=== PATIENT | male | born 1950 | race Hispanic/Latino ===

== ENCOUNTER 2017-02-14 06:35 | Day surgery (SDC) | payer MEDICARE ==
[2017-02-14 07:32] LABS: Hematocrit 40.5 % (35.5-45.6); Hemoglobin 13.9 gm/dl (11.8-15.2); Mean Corpuscular HGB Conc 34 % (32-34); Mean Corpuscular Hemoglobin 32 pg (28-32); Mean Corpuscular Volume 93 fl (84-94); Platelet Count 232 K/mm3 (140-440); Red Blood Count 4.35 M/mm3 (3.65-5.03); Red Cell Distribution Width 13.3 % (13.2-15.2); White Blood Count 8.9 K/mm3 (4.5-11.0)
[2017-02-14 07:42] LABS: INR 1.01 (0.87-1.13)
[2017-02-14 07:45] LABS: Anion Gap 17 mmol/L; BUN/Creatinine Ratio 23.33; Blood Urea Nitrogen 14 mg/dL (9-20); Calcium 9.1 mg/dL (8.4-10.2); Carbon Dioxide 25 mmol/L (22-30); Chloride 100.8 mmol/L (98-107); Glucose 108 mg/dL (75-100); Potassium 4.8 mmol/L (3.6-5.0); Sodium 138 mmol/L (137-145)
[2017-02-14] MEDS ORDERED: NACL 0.9% 500 ML 500 ML IV SCH (08:00)
[2017-02-14 08:41] LABS: Basophils % (Manual) 0 % (0.0-1.8); Blastocytes % (Manual) 0 %
[2017-02-14 08:42] LABS: Diff Status Complete; Ovalocytes Rare; Platelet Estimate Consistent w Auto; Poikilocytosis 1+; Tear Drop Cells Rare
[2017-02-14] MEDS ORDERED: BABY ASPIRIN PO SCH (10:00)
[2017-02-14] MEDS ORDERED: CALAN ONE (10:10)
[2017-02-14] MEDS ORDERED: HEPARIN 10,000 UNITS/10 ML ONE (10:10)
[2017-02-14] MEDS ORDERED: HEPARIN/NS 5000 UNIT/500ML(CATH LAB) 1,000 ML IR ONE (10:10)
[2017-02-14] MEDS ORDERED: XYLOCAINE 2% INFILTRATI ONE (10:10)
[2017-02-14] MEDS ORDERED: NITROGLYCERIN SYRINGE 3 ML ONE (10:11)
[2017-02-14] MEDS ORDERED: VERSED ONE (10:11)
[2017-02-14] MEDS ORDERED: SUBLIMAZE ONE (10:12)
--- NOTE | 2017-02-14 11:59 | Cardiac Catherization Report ---
LEFT HEART CATHETERIZATION CLINICAL INFORMATION: This is a patient of Dr. Jamel Cabrera. This is a 66-year-old male with a history of hypertension and hyperlipidemia. He is on beta soo and nitrate therapy. He gets some shortness of breath with exertion. Abnormal stress test in the inferolateral regions and is here for left heart catheterization. PROCEDURE IN DETAIL. Left heart cath performed via the right radial artery, sterile technique, local anesthesia, 6-Burmese radial sheath inserted. PROCEDURE FINDINGS: Left system engaged with JL3.5 catheter. Left main is a large caliber vessel, patent and bifurcates into a medium caliber LAD, proximal is a diffuse long 90% lesion up to the bifurcation of a [id number] caliber diagonal 1 and the rest of the LAD is a medium caliber vessel, patent with mild luminal irregularities. Circumflex has [id number] tortuosity proximally, mid long diffuse disease going to OM1 and OM2, which are both medium caliber vessel, patent with moderate tortuosity, patent with mild luminal irregularities. RCA is a dominant vessel, proximal 50%, mid has a 95% lesion. The medium caliber vessel is patent. Small PDA that is patent. PLV is small patent. LV gram done in LEI and DOSHI view shows normal LV function and LVEDP of 60 mmHg. LV was 125 and aortic was 119/59. No significant gradient across the aortic valve on pullback. 5-Burmese catheters were taken over a guidewire. A 6-Burmese radial sheath was discontinued. Radial dressing applied. No hematoma. No bleeding. SUMMARY: The patient has significant triple vessel disease, left main patent, LAD proximal long 90% after bifurcation. Diagonal 1 and LAD. Circumflex mid 80% up to the bifurcation OM1 and OM2 and RCA mid 95% lesion. The patient has normal LV function. The patient will be sent to [place] for bypass surgery. Discussed this in detail with the patient and patient's family. The patient advised to refrain from any physical exertion. The patient denies anginal symptoms at rest. JOB# [id number] CARLY/JACKIE
[2017-02-14 13:11] VITALS: BP 104/44
--- NOTE | 2017-02-14 14:48 | Short Stay Summary ---
Short Stay Documentation Date of service: 02/14/17 - History H&P: obtained from office - Allergies and Medications Current Medications: Allergies No Known Allergies Allergy (Unverified 02/14/17 06:36) Home Medications Medication Instructions Recorded Confirmed Last Taken Type Aspirin EC [Aspirin Enteric Coated 81 mg PO DAILY 02/14/17 02/14/17 02/14/17 07: 30 History TAB] Fexofenadine HCl 180 mg PO DAILY 02/14/17 02/14/17 02/13/17 History Lisinopril [Zestril TAB] 10 mg PO BID 02/14/17 02/14/17 02/13/17 History 10mg Lovastatin [Altoprev] 40 mg PO HS 02/14/17 02/14/17 02/13/17 History 40mg Metformin HCl [Glucophage] 1,000 mg PO BID 02/14/17 02/14/17 02/13/17 History 1000mg Metoprolol [Lopressor TAB] 25 mg PO DAILY 02/14/17 02/14/17 02/13/17 History 25mg Omeprazole [Omeprazole] 20 mg PO DAILY 02/14/17 02/14/17 02/13/17 History 20mg glipiZIDE [glipiZIDE XL] 5 mg PO DAILY 02/14/17 02/14/17 02/13/17 History 5mg - Brief post op/procedure progress note Date of procedure: 02/14/17 Pre-op diagnosis: abnormal stress test Post-op diagnosis: other (triple vessel CAD) Procedure: C - see cath report Anesthesia: local Estimated blood loss: none Condition: stable - Disposition Condition at discharge: Good Disposition: DC-01 TO HOME OR SELFCARE - Discharge Diagnoses (1) CAD (coronary artery disease) Status: Chronic Qualifiers: Coronary Disease-Associated Artery/Lesion type: C [place] vs. transplanted heart: N Associated angina: A (2) Diabetes Status: Chronic Qualifiers: Diabetes mellitus type: D Diabetes mellitus complication status: D Diabetes mellitus complication detail: D Diabetic retinopathy severity: D Proliferative retinopathy type: P Diabetes mellitus macular edema: D Diabetes mellitus mcc insulin use: D Laterality: L Chronic kidney disease stage: C (3) HTN (hypertension) Status: Chronic Qualifiers: Hypertension type: H (4) Hyperlipidemia Status: Chronic Qualifiers: Hyperlipidemia type: H Short Stay Discharge Plan Activity: other (per discharge instructions) Diet: low fat, low cholesterol, low salt Follow up with: JEFF WINTERS [Other] - 7 Days Forms: [facility] PCI D/C Instructions
== END 2017-02-14 13:40 | disposition home or self-care (01) ==
LOC: CATHLABREC 06:35
PROVIDERS: ATTEND Internal Medicine
DX: I25.10 Atherosclerotic heart disease of native coronary artery without angina pectoris (principal); E11.9 Type 2 diabetes mellitus without complications; I10 Essential (primary) hypertension; E78.5 Hyperlipidemia, unspecified; Z79.82 Long term (current) use of aspirin; Z79.84 Long term (current) use of oral hypoglycemic drugs; Z79.899 Other long term (current) drug therapy; Z98.890 Other specified postprocedural states; Z72.89 Other problems related to lifestyle; Z82.49 Family history of ischemic heart disease and other diseases of the circulatory system; Z83.3 Family history of diabetes mellitus
CPT/HCPCS: 36415; 80048; 82962; 85007; 85025; 85610; 85730; 93005; 93010; 93458; C1894; J1644; J2250; J3010; J7040; Q9967

== ENCOUNTER 2018-01-02 07:03 | Observation (INO) | payer MEDICARE, OTHER ==
[2018-01-02] MEDS ORDERED: NACL 0.9% 500 ML 500 ML IV SCH (08:00)
[2018-01-02] MEDS ORDERED: HEPARIN 10,000 UNITS/10 ML ONE ×2 (08:17→10:39)
[2018-01-02] MEDS ORDERED: HEPARIN/NS 5000 UNIT/500ML(CATH LAB) 1,000 ML IR ONE (08:17)
[2018-01-02] MEDS ORDERED: NITROGLYCERIN SYRINGE 3 ML ONE (08:18)
[2018-01-02] MEDS ORDERED: VERSED ONE (08:18)
[2018-01-02] MEDS ORDERED: SUBLIMAZE ONE (08:18)
[2018-01-02] MEDS: XYLOCAINE 2% INFILTRATI ONE ×2 (09:04→09:07)
[2018-01-02] MEDS ORDERED: NACL 0.9% 1000 ML 1,000 ML ONE (09:35)
[2018-01-02] MEDS ORDERED: NACL 0.9% 500 ML 500 ML ONE (10:12)
[2018-01-02] MEDS ORDERED: ALUM-MAG HYDROX-SIMETH 200-200-20MG/5ML ONE (10:47)
[2018-01-02] MEDS ORDERED: PLAVIX ONE (10:47)
[2018-01-02] MEDS ORDERED: D50W (25GM) Syringe IV PRN (11:19)
[2018-01-02] MEDS: HumaLOG SUB-Q SCH ×3 (17:13→21:15)
--- NOTE | 2018-01-02 19:56 | Cardiac Catherization Report ---
CARDIAC CATHETERIZATION AND CORONARY INTERVENTION REPORT INDICATION FOR PROCEDURE: The patient is a 67-year-old white gentleman, being followed by Dr. Axel Cabrera in the office with history of aortocoronary bypass surgery done in 2017 with left internal mammary to the distal LAD, SVG to the OM1 and SVG to OM2 in addition to SVG to the PDA. He is having chest tightness on and off and he is on appropriate medical therapy with isosorbide and beta blockers and antilipidemic in addition to aspirin and Plavix. Because he is feeling tired and he is not able to carry out his usual activities, stress EKG showed positive for ischemia in the inferior leads on the EKG with no perfusion abnormalities. Because of his persistent symptoms in spite of treatment, he was scheduled for cardiac catheterization for definitive diagnosis and treatment. The patient is aware of the procedure, potential complications and alternatives of therapy available. DESCRIPTION OF PROCEDURE: The patient was brought to the catheterization laboratory in a fasting condition. Right groin area was thoroughly cleansed with Betadine solution. Sterile drapes were applied. Local anesthesia was achieved using 2% Xylocaine. Right femoral artery puncture was made using 21-gauge arterial puncture needle. Subsequently, initially, 5-Togolese sheath was introduced and 5-Togolese multipurpose catheter was used to obtain the angiograms of the vein grafts and subsequently, changed to 6-Togolese sheath and 6-Togolese multipurpose catheter. Left ventriculogram was performed using hand injection. Subsequently, angiograms of the 3 vein grafts and right hand coronary artery were obtained using 6-Togolese multipurpose catheter. Using 5-Togolese mammary catheter, angiograms of the internal mammary were obtained. At the end of the angiography, it was decided the patient would benefit from intervention of the tight RCA lesion noted in the RCA with bypass graft to the RCA being occluded. ANGIOGRAPHIC FINDINGS: Angiographic findings are as follows: Hemodynamics: Aortic pressure is 121/61, left ventricular pressure 124/21. No gradient across the aortic valve. Estimated ejection fraction 55% noted. Left ventriculogram done in DOSHI projection with hand injection showed normal sized left ventricle with normal contractility. End-diastolic and systolic functions are normal. Mitral regurgitation could not be evaluated because of limited amount of dye injected. Right coronary artery showed dominant RCA with mild diffuse calcific disease throughout with very tight more than 95% segmental lesion in the mid part. PDA and LV branches do have some mild to moderate disease, which is diffuse. SVG to the RCA is occluded at the ostium with no visualization of the graft. Left coronary artery: Left main without significant disease. LAD is diffusely severely diseased in the proximal part and proximal mild diagonal branch, medium to large size without significant disease. Distal LAD is not visualized on nulato LCA injection because of competitive flow. Circumflex artery is occluded in the proximal part before the origin of any major marginal branches. Saphenous vein graft to the obtuse marginal branch is patent, smooth. Marginal branch itself medium sized vessel without significant disease. Similarly, saphenous vein graft to the OM2 is patent with medium sized second obtuse marginal being patent. Left internal mammary to the distal LAD is widely patent. Distal LAD itself without significant disease. Collaterals: None. FINAL IMPRESSION: 1. Normal sized left ventricle with normal contractility, ejection fraction of 55%. 2. Severe triple vessel disease as mentioned above with LAD being protected by left internal mammary graft. Obtuse marginal is being protected by saphenous vein graft. However, dominant RCA with very tight mid RCA lesion had occluded vein graft. At this time, considering the severity and length of the lesion, it was felt that the patient would benefit from intervention of the RCA. 3. Interventional procedure of the mid right coronary artery: The patient has indwelling 6-Togolese sheath in the right groin. The patient was heparinized with 6000 units of heparin. Subsequently, 6-Togolese JR4 catheter was used to engage the right coronary artery. A 0.014 inch Morse XT wire was advanced into the distal RCA without difficulty. However, initially 2.5 balloon was attempted to cross the lesion, could not cross. Therefore, 1.5 balloon was used and it crossed the lesion. Subsequently, lesion was dilated with 2.5 x 15 mm balloon up to 20 atmospheres, followed by placement of 3.0 balloon inflated to 20 atmospheres. Initially, it was difficult to advance the 3.0 balloon. However, with the help of the jammie wire, Iron Man could advance the balloon. Dilated up to 20 atmospheres. Subsequently, attempted to place a 3.0 x 18 mm Resolute Integrity stent, which would not cross initially. With the help of the jammie wire namely Iron Man, it could advance into the proximal two-thirds of the lesion. This was dilated up to 16 atmospheres with good result. There is still nonobstructive disease in the distal part of the lesion. Hence, further attempts were made with the help of the jammie wire to advance a second 3.0 x 8 mm Resolute Integrity stent. Finally, it could advance to the distal part of the lesion, inflated up to 14 atmospheres with very good result. No residual stenosis noted. No complications of dissection or perforation or embolization noted. The patient tolerated the procedure well without any chest pain or his significant EKG changes or hemodynamic changes. Angiograms of the right femoral artery were obtained. When it was felt appropriate, a 6-Togolese Perclose device was used to close the right femoral artery with good hemostasis. Procedure was uncomplicated with good hemostasis. The patient was initially evaluated for moderate sedation and felt to be appropriate. Hence, the patient was sedated with IV Versed and fentanyl. The patient's sedation started at 9:04 a.m. and ended at 10:43 a.m. The patient was monitored throughout the procedure with pulse oximetry, EKG and hemodynamic monitoring. The patient was stable. No untoward complications were noted. FINAL IMPRESSION: Uncomplicated drug-eluting stent placements in the mid RCA, namely 2 stents was inserted, 3.0 x 18 and 3.0 x 8 mm Resolute Integrity stents with lesion being reduced from 95% to 0% without any complications. However, this was considering the severity of the lesion and calcification, it was difficult procedure, but no complications were noted. RAVI 3 flow was noted pre and post-procedure. The patient was given 300 mg of Plavix in addition to aspirin and will be monitored in telemetry. Findings were explained to the patient and . Good hemostasis was achieved with Perclose device. JOB# [id number] CHANELLE/JACKIE RAI
--- NOTE | 2018-01-03 06:25 | XRay Report ---
FINAL REPORT EXAM: XR CHEST 1V AP HISTORY: post pci TECHNIQUE: A portable upright view the chest was obtained. FINDINGS: There are sternotomy sutures and postsurgical changes from previous bypass surgery. The heart size is normal. The lungs are not congested. There are no localized infiltrates or effusions. The skeletal structures do not show any acute changes. IMPRESSION: Previous bypass surgery changes. No acute cardiopulmonary process.
[2018-01-03 08:05] LABS: Basophils % (Auto) 0.7 % (0.0-1.8); Eosinophils # (Auto) 0.3 K/mm3 (0.0-0.4); Eosinophils % (Auto) 4.5 % (0.0-4.3); Hematocrit 37.9 % (35.5-45.6); Hemoglobin 12.9 gm/dl (11.8-15.2); Lymphocytes # (Auto) 1.6 K/mm3 (1.2-5.4); Lymphocytes % (Auto) 22.3 % (13.4-35.0); Mean Corpuscular HGB Conc 34 % (32-34); Mean Corpuscular Hemoglobin 30 pg (28-32); Mean Corpuscular Volume 88 fl (84-94); Monocytes # (Auto) 0.6 K/mm3 (0.0-0.8); Monocytes % (Auto) 8.7 % (0.0-7.3); Platelet Count 246 K/mm3 (140-440); Red Blood Count 4.31 M/mm3 (3.65-5.03); Red Cell Distribution Width 15.1 % (13.2-15.2)
[2018-01-03] MEDS: HumaLOG SUB-Q SCH (08:10)
[2018-01-03 08:18] LABS: BUN/Creatinine Ratio 11; Blood Urea Nitrogen 8 mg/dL (9-20); Calcium 8.6 mg/dL (8.4-10.2); Creatine Kinase MB 1.4 ng/mL (0.0-4.0); Hemolysis Index 5
[2018-01-03 09:57] VITALS: BP 125/66
[2018-01-03] MEDS ORDERED: ECOTRIN PO SCH (10:00)
[2018-01-03] MEDS ORDERED: TOPROL XL PO SCH (10:00)
[2018-01-03] MEDS ORDERED: PLAVIX PO SCH (10:00)
[2018-01-03] MEDS ORDERED: ZESTRIL PO SCH (10:00)
[2018-01-03] MEDS ORDERED: IMDUR PO SCH (10:00)
--- NOTE | 2018-01-03 10:23 | Short Stay Summary ---
Short Stay Documentation Date of service: 01/03/18 - History H&P: obtained from office - Allergies and Medications Current Medications: Allergies No Known Allergies Allergy (Unverified 02/14/17 06:36) Home Medications Medication Instructions Recorded Confirmed Last Taken Type Aspirin EC [Aspirin Enteric Coated 81 mg PO DAILY 02/14/17 01/02/18 01/02/18 07: 32 History TAB] Fexofenadine HCl 180 mg PO DAILY 02/14/17 01/02/18 01/01/18 History Lisinopril [Zestril TAB] 20 mg PO DAILY 02/14/17 01/02/18 01/01/18 History Lovastatin [Altoprev] 40 mg PO HS 02/14/17 01/02/18 01/01/18 History Metformin HCl [Glucophage] 1,000 mg PO BID 02/14/17 01/02/18 01/01/18 History Metoprolol [Lopressor TAB] 25 mg PO DAILY 02/14/17 01/02/18 01/01/18 History Omeprazole 20 mg PO DAILY 02/14/17 01/02/18 01/01/18 History glipiZIDE [glipiZIDE XL] 5 mg PO DAILY 02/14/17 01/02/18 01/01/18 History Clopidogrel Bisulfate [Clopidogrel] 75 mg PO DAILY 01/02/18 01/02/18 01/02/18 07 :32 History Potassium 99 mg PO DAILY 01/02/18 01/02/18 01/01/18 History Vit B Comp/C/Folic/Iron/Vit E 1 each PO DAILY 01/02/18 01/02/18 01/01/18 History [Vitamin B Complex Tablet] Active Medications Aspirin (Ecotrin) 325 mg PO QDAY [facility] Last Admin: 01/03/18 09:11 Dose: 325 mg Atorvastatin Calcium (Lipitor) 40 mg PO QHS [facility] Last Admin: 01/02/18 21:15 Dose: 40 mg Clopidogrel Bisulfate (Plavix) 75 mg PO DAILY [facility] Last Admin: 01/03/18 09:13 Dose: 75 mg Dextrose (D50w (25gm) Syringe) 50 ml IV PRN PRN PRN Reason: Hypoglycemia Insulin Human Lispro (Humalog) 0 unit SUB-Q [facility]; Protocol Last Admin: 01/03/18 08:10 Dose: 2 unit Isosorbide Mononitrate (Imdur) 30 mg PO QDAY [facility] Last Admin: 01/03/18 09:13 Dose: 30 mg Lisinopril (Zestril) 20 mg PO DAILY [facility] Last Admin: 01/03/18 09:12 Dose: 20 mg Metoprolol Succinate (Toprol Xl) 25 mg PO QDAY [facility] Last Admin: 01/03/18 09:56 Dose: 25 mg - Physical exam General appearance: no acute distress Integumentary: no rash, no growths, no abnormal pigmentation, other (right femoral LHC site dressing removed, site c/d/i with no evidence of bleeding or hematoma) HEENT: Atraumatic, PERRLA Lungs: Clear to auscultation Heart: Regular rate, Normal S1, Normal S2 Gastrointestinal: normal, normoactive bowel sounds Extremities: no ischemia, pulses intact, pulses symmetrical Neurological: Normal gait, Normal speech, Strength at 5/5 X4 ext - Brief post op/procedure progress note Date of procedure: 01/02/18 Pre-op diagnosis: CAD Post-op diagnosis: same Anesthesia: local Estimated blood loss: none Condition: stable - Disposition Condition at discharge: Stable Disposition: DC-01 TO HOME OR SELFCARE - Discharge Diagnoses (1) CAD (coronary artery disease) Status: Chronic (2) Stented coronary artery Status: Acute (3) History of coronary artery bypass graft Status: Chronic (4) Diabetes Status: Chronic (5) HTN (hypertension) Status: Chronic (6) Hyperlipidemia Status: Chronic Short Stay Discharge Plan Activity: advance as tolerated Diet: low cholesterol, low salt, diabetic Wound: open to air, keep clean and dry, per your surgeon's advice Follow up with: JEFF WINTERS MD [Other] - 7 Days TOMAS MART MD [Staff Physician] - 7 Days (Follow up in our [place] office with Dr. Mart on 01/14/2018 @ 8:30AM)
== END 2018-01-03 11:18 | disposition home or self-care (01) ==
LOC: CATHLABREC 07:03 → IMCU 11:16
PROVIDERS: ADMIT Internal Medicine; ATTEND Internal Medicine
DX: I25.10 Atherosclerotic heart disease of native coronary artery without angina pectoris (principal); I10 Essential (primary) hypertension; E11.9 Type 2 diabetes mellitus without complications; E78.5 Hyperlipidemia, unspecified; Z95.1 Presence of aortocoronary bypass graft; Z82.49 Family history of ischemic heart disease and other diseases of the circulatory system; Z72.89 Other problems related to lifestyle
CPT/HCPCS: 36415; 71045; 80048; 82550; 82553; 82962; 84484; 85025; 85347; 93005; 93010; 93459; 96372; A9270; C1725; C1760; C1769; C1874; C1887; C1894; C9600; G0378; J1644; J2250; J3010; J7030; J7040; 92928; J1815; Q9967